=== PATIENT | female | born 1970 | race Caucasian/White ===

== ENCOUNTER → 2024-02-11 10:59 | Outpatient (REF) | payer OTHER, SELFPAY ==
[2024-02-11 19:14] LABS: Rubella Positive
[2024-02-13 05:44] LABS: Quantiferon Plus TB2 minus NIL 0.01 IU/mL (<=0.34); Quantiferon TB Gold Plus Negative (Negative)
== END ==
LOC: OHS 10:59
PROVIDERS: ATTENDING PHYSICIAN Nurse Practitioner Family
DX: Z23 Encounter for immunization (principal)
CPT/HCPCS: 36415; 86480; 86735; 86762; 86765; 86787

== ENCOUNTER → 2024-08-20 09:31 | Outpatient (REF) | payer BC, SELFPAY ==
[2024-08-20 10:05] LABS: % Basophils 0.9 % (0-2); % Immature Granulocytes 0.5 % (0-0.5); % Lymphocytes 17.9 % (20.5-51.1); % Monocytes 4.2 % (1.7-9.3); % Neutrophils 72.5 % (42.2-75.2); Absolute Basophils 0.1 10^3/uL (0-0.2); Absolute Eosinophils 0.3 10^3/uL (0-0.7); Absolute Lymphocytes 1.5 10^3/uL (1.2-3.4); Absolute Monocytes 0.3 10^3/uL (0.1-0.6); Absolute Neutrophils 5.9 10^3/uL (1.4-6.5); Hemoglobin 10.3 g/dL (12.0-16.0); Mean Corp Hgb Conc. 32.2 g/dL (33.0-37.0); Mean Corpuscular Hgb 28.6 pg (27.0-31.0); Mean Corpuscular Volume 88.9 fL (81.0-99.0); Mean Platelet Volume 10.2 fL (7.4-10.4); Nucleated Red Blood Cells % 0 %; Platelet Count 234 10^3/uL (130-400); Red Cell Dist. Width 13.8 % (11.5-14.5); White Blood Cell Count 8.2 10^3/uL (4.8-10.8)
[2024-08-20 10:25] LABS: ALT (SGPT) < 10 U/L (0-35); AST (SGOT) 13 U/L (14-36); Albumin 4.1 g/dl (3.5-5.0); Alkaline Phosphatase 82 U/L (38-126); Blood Urea Nitrogen 36 mg/dl (7-17); Calcium 8.9 mg/dl (8.4-10.2); Carbon Dioxide 26 mmol/L (22-30); Chloride 110 mmol/L (98-107); Erythrocyte Sed Rate 77 mm/hour (0-20); Glucose 102 mg/dl (70-99); HDL Cholesterol 45 mg/dl; LDL Cholesterol, Calculated 57 mg/dl; Potassium 4.8 mmol/L (3.5-5.1); Sodium 145 mmol/L (135-145); Total Bilirubin 0.4 mg/dl (0.2-1.3); Total Cholesterol 128 mg/dl (50-199); Total Protein 8.2 g/dl (6.3-8.2); Triglyceride 130 mg/dl (10-149); Very Low Density Lipoprotein 26 mg/dl (0-30); eGFR 49.17
[2024-08-20 10:44] LABS: Vitamin D, 25-OH*** 38.8 ng/mL (30-80)
[2024-08-20 10:58] LABS: TSH 2.96 uIU/ml (0.47-4.68)
[2024-08-20 11:17] LABS: Vitamin B12 263 pg/ml (239-931)
[2024-08-21 21:37] LABS: ANA, IgG Reflex to HEp-2 None Detected (None Detected)
[2024-08-22 14:02] LABS: Lyme Antibody Screen, EIA Equivocal (Negative); Rheumatoid Agglutinin Less Than 10 IU (<10 IU)
== END ==
LOC: REG 09:31
PROVIDERS: ATTENDING PHYSICIAN Nurse Practitioner
DX: I10 Essential (primary) hypertension (principal); E78.49 Other hyperlipidemia; R68.89 Other general symptoms and signs; I89.0 Lymphedema, not elsewhere classified; D64.9 Anemia, unspecified; R52 Pain, unspecified; E55.9 Vitamin D deficiency, unspecified
CPT/HCPCS: 36415; 80053; 80061; 82306; 82607; 84443; 85025; 85652; 86038; 86140; 86430; 86617; 86618

== ENCOUNTER → 2024-08-31 09:48 | Outpatient (REF) | payer BC, SELFPAY ==
[2024-08-31 10:35] LABS: Hematocrit 30.2 % (37.0-47.0); Hemoglobin 9.8 g/dL (12.0-16.0); Mean Corp Hgb Conc. 32.5 g/dL (33.0-37.0); Mean Corpuscular Volume 86.8 fL (81.0-99.0); Nucleated Red Blood Cells % 0 %; Platelet Count 212 10^3/uL (130-400); Red Cell Dist. Width 13.7 % (11.5-14.5)
[2024-08-31 11:06] LABS: ALT (SGPT) < 10 U/L (0-35); AST (SGOT) 12 U/L (14-36); Albumin 4.0 g/dl (3.5-5.0); Alkaline Phosphatase 91 U/L (38-126); Blood Urea Nitrogen 37 mg/dl (7-17); Calcium 9.0 mg/dl (8.4-10.2); Carbon Dioxide 24 mmol/L (22-30); Chloride 109 mmol/L (98-107); Glucose 103 mg/dl (70-99); Potassium 4.8 mmol/L (3.5-5.1); Sodium 139 mmol/L (135-145); Total Protein 8.1 g/dl (6.3-8.2); eGFR 54.13
[2024-08-31 11:09] LABS: C-Reactive Protein 34.00 mg/L (0.0-10.00)
== END ==
LOC: REG 09:48
PROVIDERS: ATTENDING PHYSICIAN Nurse Practitioner
DX: R79.82 Elevated C-reactive protein (CRP) (principal); R70.0 Elevated erythrocyte sedimentation rate; D64.9 Anemia, unspecified
CPT/HCPCS: 36415; 80053; 85025; 85652; 86140

== ENCOUNTER → 2024-09-14 11:21 | Outpatient (REF) | payer BC, SELFPAY | LOC: RAD 11:21 | PROVIDERS: ATTENDING PHYSICIAN Nurse Practitioner | DX: I89.0 Lymphedema, not elsewhere classified (principal); R79.82 Elevated C-reactive protein (CRP); R70.0 Elevated erythrocyte sedimentation rate | CPT/HCPCS: 36415; 93970 ==

== ENCOUNTER → 2024-09-15 18:10 | Outpatient (REF) | payer BC, SELFPAY ==
[2024-09-15 18:34] LABS: Hematocrit 32.9 % (37.0-47.0); Hemoglobin 10.1 g/dL (12.0-16.0); Mean Corp Hgb Conc. 30.7 g/dL (33.0-37.0); Mean Corpuscular Volume 90.9 fL (81.0-99.0); Nucleated Red Blood Cells % 0 %; Platelet Count 263 10^3/uL (130-400); Red Cell Dist. Width 14.0 % (11.5-14.5)
[2024-09-15 18:36] LABS: ALT (SGPT) < 10 U/L (0-35); AST (SGOT) 13 U/L (14-36); Albumin 4.3 g/dl (3.5-5.0); Alkaline Phosphatase 85 U/L (38-126); Blood Urea Nitrogen 28 mg/dl (7-17); Calcium 8.8 mg/dl (8.4-10.2); Carbon Dioxide 24 mmol/L (22-30); Chloride 105 mmol/L (98-107); Glucose 85 mg/dl (70-99); Potassium 4.3 mmol/L (3.5-5.1); Sodium 140 mmol/L (135-145); Total Protein 8.4 g/dl (6.3-8.2); eGFR > 60.00
[2024-09-15 18:40] LABS: C-Reactive Protein 29.60 mg/L (0.0-10.00)
== END ==
LOC: CLAB 18:10
PROVIDERS: ATTENDING PHYSICIAN Nurse Practitioner
DX: R79.82 Elevated C-reactive protein (CRP) (principal); D64.9 Anemia, unspecified; R70.0 Elevated erythrocyte sedimentation rate; R19.7 Diarrhea, unspecified
CPT/HCPCS: 36415; 80053; 85025; 85652; 86140

== ENCOUNTER → 2024-09-21 11:01 | Outpatient (REF) | payer BC, SELFPAY | LOC: RAD 11:01 | PROVIDERS: ATTENDING PHYSICIAN Nurse Practitioner | DX: R79.82 Elevated C-reactive protein (CRP) (principal); R70.0 Elevated erythrocyte sedimentation rate; D64.9 Anemia, unspecified | CPT/HCPCS: 74177; Q9967 ==

== ENCOUNTER → 2024-10-11 13:31 | Outpatient (REF) | payer BC, SELFPAY ==
[2024-10-11 13:55] VITALS: BP 160/87; BP_SYST 84
[2024-10-11 16:28] VITALS: BP 137/77; BP_SYST 70
== END ==
LOC: RADI 13:31
PROVIDERS: ATTENDING PHYSICIAN Nurse Practitioner
DX: R59.0 Localized enlarged lymph nodes (principal)
CPT/HCPCS: 38505; 76942; 88305; 88333; 88341; 88342

== ENCOUNTER → 2024-10-22 10:04 | Outpatient (REF) | payer BC, SELFPAY ==
[2024-10-22 11:34] LABS: ALT (SGPT) 14 U/L (0-35); AST (SGOT) 18 U/L (14-36); Albumin 4.4 g/dl (3.5-5.0); Alkaline Phosphatase 105 U/L (38-126); Blood Urea Nitrogen 39 mg/dl (7-17); Calcium 9.3 mg/dl (8.4-10.2); Carbon Dioxide 24 mmol/L (22-30); Chloride 105 mmol/L (98-107); Glucose 92 mg/dl (70-99); Potassium 4.6 mmol/L (3.5-5.1); Sodium 139 mmol/L (135-145); Total Protein 8.6 g/dl (6.3-8.2); eGFR 53.79
[2024-10-22 11:36] LABS: C-Reactive Protein 6.90 mg/L (0.0-10.00)
[2024-10-22 12:11] LABS: Ferritin 79.6 ng/ml (11.1-264.0)
[2024-10-22 12:41] LABS: Hematocrit 28.0 % (37.0-47.0); Hemoglobin 9.0 g/dL (12.0-16.0); Mean Corp Hgb Conc. 32.1 g/dL (33.0-37.0); Mean Corpuscular Volume 85.4 fL (81.0-99.0); Nucleated Red Blood Cells % 0 %; Red Cell Dist. Width 14.1 % (11.5-14.5)
[2024-10-22 18:38] LABS: Hepatitis B Surface Antigen Negative (Negative)
[2024-10-25 03:25] LABS: CCP Antibody IgG/IgA 3 Units (0-19)
[2024-10-25 03:33] LABS: Beta-2-Glycoprotein I Ab. IgG <10 SGU (<=20); Beta-2-Glycoprotein I Ab. IgM <10 SMU (<=20)
== END ==
LOC: REG 10:04
PROVIDERS: ATTENDING PHYSICIAN Hospitalist; FAMILY PHYSICIAN Nurse Practitioner
DX: D64.9 Anemia, unspecified (principal); I89.0 Lymphedema, not elsewhere classified; K21.9 Gastro-esophageal reflux disease without esophagitis; D68.61 Antiphospholipid syndrome; D89.84 IgG4-related disease; M25.50 Pain in unspecified joint; R59.1 Generalized enlarged lymph nodes
CPT/HCPCS: 36415; 80053; 82570; 82728; 82787; 83516; 84155; 84156; 84165; 85025; 85610; 85613; 85652; 85730; 86140; 86146; 86147; 86160; 86200; 86235; 86480; 87340; 87517; 87522

== ENCOUNTER → 2024-12-03 10:49 | Outpatient (REF) | payer BC, SELFPAY ==
[2024-12-03 11:40] LABS: Hematocrit 32.5 % (37.0-47.0); Hemoglobin 10.1 g/dL (12.0-16.0); Mean Corp Hgb Conc. 31.1 g/dL (33.0-37.0); Mean Corpuscular Volume 86.7 fL (81.0-99.0); Nucleated Red Blood Cells % 0 %; Red Cell Dist. Width 15.3 % (11.5-14.5)
[2024-12-03 11:58] LABS: Platelet Count 192 10^3/uL (130-400)
[2024-12-05 18:29] LABS: CA 125 8.6 U/mL (0-35)
== END ==
LOC: REG 10:49
PROVIDERS: ATTENDING PHYSICIAN Internal Medicine Hematology & Oncology; FAMILY PHYSICIAN Obstetrics & Gynecology
DX: D64.9 Anemia, unspecified (principal); R59.1 Generalized enlarged lymph nodes; R50.9 Fever, unspecified; N83.292 Other ovarian cyst, left side; R93.89 Abnormal findings on diagnostic imaging of other specified body structures
CPT/HCPCS: 36415; 85025; 86304; 87040

== ENCOUNTER → 2025-01-01 08:18 | Outpatient (REF) | payer BC, SELFPAY | LOC: MRI 3T 08:18 | PROVIDERS: ATTENDING PHYSICIAN Obstetrics & Gynecology; FAMILY PHYSICIAN Nurse Practitioner | DX: N83.292 Other ovarian cyst, left side (principal) | CPT/HCPCS: 72197; A9575 ==

== ENCOUNTER 2025-02-08 06:14 | Day surgery (SDC) | payer BC, SELFPAY ==
[2025-02-06 08:41] VITALS: BMI 52.2
[2025-02-06 11:57] LABS: Hematocrit 33.3 % (37.0-47.0); Hemoglobin 10.6 g/dL (12.0-16.0); Mean Corp Hgb Conc. 31.8 g/dL (33.0-37.0); Mean Corpuscular Volume 85.4 fL (81.0-99.0); Nucleated Red Blood Cells % 0 %; Platelet Count 250 10^3/uL (130-400); Red Cell Dist. Width 15.0 % (11.5-14.5)
[2025-02-06 12:31] LABS: Blood Urea Nitrogen 34 mg/dl (7-17); Calcium 9.2 mg/dl (8.4-10.2); Carbon Dioxide 23 mmol/L (22-30); Chloride 106 mmol/L (98-107); Estimated Creatinine Clearance 84 ml/min; Glucose 90 mg/dl (70-99); Potassium 4.1 mmol/L (3.5-5.1); Sodium 139 mmol/L (135-145); eGFR 59.71
[2025-02-08] VITALS (8 sets, daily range): BP systolic 119–164; BP diastolic 58–94; BMI 52.2
[2025-02-08] MEDS: NORMOSOL-R/PLASMALYTE-A 1000 IV (11:18)
== END 2025-02-08 14:05 | disposition home or self-care (01) ==
LOC: SDS 06:14
PROVIDERS: ATTENDING PHYSICIAN Obstetrics & Gynecology; FAMILY PHYSICIAN Nurse Practitioner
DX: R93.89 Abnormal findings on diagnostic imaging of other specified body structures (principal); N88.2 Stricture and stenosis of cervix uteri
CPT/HCPCS: 58558; 80048; 85025; 88305